=== PATIENT | male | born 1935 | race African-American/Black ===

== ENCOUNTER 2021-05-22 16:37 | Emergency (ER) | payer OTHER ==
[~2021-05-22] VITALS: Ht 175.3 cm; Wt 68.7 kg
[2021-05-22] MEDS ORDERED: KETOROLAC TROMETHAMINE 30 MG/ML VIAL IV STA (17:35)
[2021-05-22] MEDS ORDERED: AMLODIPINE BESYL5 MG PO (17:45)
[2021-05-22] MEDS ORDERED: SODIUM CHLORIDE 0.9% 1000ML 500 ML IV ONE (17:45)
[2021-05-22] MEDS ORDERED: KETOROLAC TROMETHAMINE 30 MG/ML VIAL ONE (17:59)
[2021-05-22] MEDS ORDERED: SODIUM CHLORIDE 0.9% 1000ML 1,000 ML ONE (18:00)
[2021-05-22] MEDS ORDERED: BACTRIM DS TAB1 EACH PO (19:16)
== END 2021-05-22 20:00 | disposition home or self-care (01) ==
LOC: FSED 17:36
DX: E87.5 Hyperkalemia (principal); N39.0 Urinary tract infection, site not specified; E86.1 Hypovolemia; E86.0 Dehydration; M54.89 Other dorsalgia; Z87.891 Personal history of nicotine dependence; I10 Essential (primary) hypertension
CPT/HCPCS: 71046; 80048; 82553; 84484; 85025; 93005; 99284; J1885; J7030